=== PATIENT | female | born 1990 | race Caucasian/White ===

== ENCOUNTER 2023-08-14 07:05 | Inpatient (IN) ==
[2023-08-14] MEDS ORDERED: Buffered Lidocaine 1% SYRIN 1 ml INTRADERM ONE (07:54)
[2023-08-14] MEDS ORDERED: Lactated Ringers 1000 ml BAG 1,000 ML IV ONE (07:54)
[2023-08-14] MEDS ORDERED: Lidocaine 1% VIAL 10 MG/ML 30 ML VIAL INJ PRN (07:54)
[2023-08-14] MEDS ORDERED: Lactated Ringers 1000 ml BAG 1,000 ML IV SCH ×2 (08:00→10:00)
[2023-08-14 08:28] LABS: Urine Benzodiazepine Screen None Detected (None Detect); Urine Cannabinoids Screen None Detected (None Detect); Urine Opiates Screen None Detected (None Detect)
[2023-08-14] MEDS ORDERED: Dibucaine 1% OINT 28.35 GM TUBE PR PRN (09:11)
[2023-08-14] MEDS ORDERED: Witch Hazel PAD JAR TOPICAL PRN (09:11)
[2023-08-14] MEDS ORDERED: Oxytocin 10 UNITS/ML 1 ML VIAL IM ONE (09:11)
[2023-08-14 09:55] LABS: ABS Lymphocytes 0.6 10^3/uL (1.0-4.8); ABS Monocytes 0.4 10^3/uL (0.0-0.9); ABS Neutrophils 12.6 10^3/uL (1.5-7.6); Hematocrit 33.2 % (35-45); Hemoglobin 11.5 g/dL (11.5-14.3); Lymphocyte % 4.4 %; Mean Corpuscular Hemoglobin 31.5 pg (27-33); Mean Corpuscular Hgb Conc 34.8 g/dL (31-36); Mean Corpuscular Volume 90.6 fL (80-97); Mean Platelet Volume 10.9 fL (7.5-11.2); Platelet Count 168 10^3/uL (150-450); Red Blood Count 3.66 10^6/uL (3.63-4.92); Red Cell Distribution Width 12.8 % (12-17); White Blood Count 13.5 10^3/uL (3.8-11.8)
[2023-08-14 15:28] LABS: ABS Lymphocytes 1.3 10^3/uL (1.0-4.8); ABS Monocytes 0.8 10^3/uL (0.0-0.9); ABS Neutrophils 11.5 10^3/uL (1.5-7.6); ABS Nucleated RBC 0.01 10^3/ul; Hematocrit 28.3 % (35-45); Lymphocyte % 9.5 %; Mean Corpuscular Hemoglobin 31.9 pg (27-33); Mean Corpuscular Hgb Conc 35.2 g/dL (31-36); Mean Corpuscular Volume 90.6 fL (80-97); Mean Platelet Volume 11.3 fL (7.5-11.2); Platelet Count 167 10^3/uL (150-450); Red Blood Count 3.12 10^6/uL (3.63-4.92); Red Cell Distribution Width 12.7 % (12-17); White Blood Count 13.7 10^3/uL (3.8-11.8)
[2023-08-15 07:11] LABS: ABS Eosinophils 0.1 10^3/uL (0.0-0.5); ABS Lymphocytes 2.2 10^3/uL (1.0-4.8); ABS Monocytes 0.8 10^3/uL (0.0-0.9); ABS Neutrophils 6.4 10^3/uL (1.5-7.6); Eosinophil % 0.7 %; Hematocrit 21.8 % (35-45); Hemoglobin 7.9 g/dL (11.5-14.3); Lymphocyte % 23.4 %; Mean Corpuscular Hemoglobin 32.3 pg (27-33); Mean Corpuscular Hgb Conc 36.2 g/dL (31-36); Mean Corpuscular Volume 89.1 fL (80-97); Mean Platelet Volume 10.9 fL (7.5-11.2); Platelet Count 116 10^3/uL (150-450); Red Blood Count 2.45 10^6/uL (3.63-4.92); White Blood Count 9.6 10^3/uL (3.8-11.8)
[2023-08-15] MEDS ORDERED: Iron Sucrose 200 MG in NS 0.9% 100 ml BAG 100 ML IVPB ONE (10:59)
[2023-08-15] MEDS ORDERED: Iron Sucrose 200 MG in NS 0.9% 100 ml IVPB ONE (12:30)
[2023-08-16 10:28] VITALS: BP 122/73
== END 2023-08-16 13:19 | disposition home or self-care (01) | DRG 560 ==
LOC: MCHOBOUT 07:05 → MCHOB 07:52
PROVIDERS: ADMIT Midwife; ATTEND Midwife